=== PATIENT | male | born 1980 | race Caucasian/White ===

== ENCOUNTER → 2022-06-09 | Outpatient (CLI) | payer OTHER, SELFPAY ==
[2022-06-09 10:49] LABS: Hematocrit 49.7 % (40-54); Hemoglobin 16.9 g/dL (13.0-16.5)
[2022-06-09 11:31] LABS: ALB/GLOB Ratio 1.1 RATIO (0.9-2.4); AST(SGOT) 21 U/L (15-37); Alanine Aminotransfer ALT/SGPT 44 U/L (16-61); Albumin, Serum 4.1 g/dL (3.2-5.0); Alkaline Phosphatase 99 U/L (45-117); Anion Gap 6 (5-15); BUN 21 mg/dL (7-18); BUN/Creat Ratio 22.4 RATIO (10-20); Calcium,Total 9.5 mg/dL (8.5-10.1); Chloride 109 mmol/L (98-107); Cholesterol 201 mg/dL (200); Creatinine, Serum 0.94 mg/dL (0.70-1.30); EST Glomerular Filtration Rate 93 mL/min (>60); Est Glom Filt Rate - Afr Amer 112 mL/min (>60); Estradiol 49.5 pg/mL; Follicle Stimulating Hormone 6.9 mIU/mL; Globulin 3.6 g/dL (2.2-4.2); Glucose 102 mg/dL (74-106); High Density Lipoprotein 51 mg/dL; Luteinizing Hormone 7.8 mIU/mL; PSA,Total - Annual Screen 2.29 ng/mL (0.00-4.00); Potassium 4.1 mmol/L (3.5-5.1); Prolactin 8.7 ng/mL; Protein, Total 7.7 g/dL (6.4-8.2); Sodium Level 140 mmol/L (136-145); Thyroid Stim Hormone (TSH) 0.73 uIU/mL (0.358-3.74); Triglycerides 137 mg/dL; Very Low Density Lipoprotein 27 mg/dL (5-40)
[2022-06-16 09:08] LABS: Testosterone, % Free 2.52 % (1.50-4.20); Testosterone, Free 10.74 ng/dL (5.00-21.00)
[2022-06-17 15:48] LABS: Sex Hormone-binding Globulin 34.5 nmol/L (16.5-55.9); Testosterone, Total 426 ng/dL (264-916)
== END | disposition home or self-care (01) ==
PROVIDERS: PCP Nurse Practitioner Family
DX: Z00.00 Encounter for general adult medical examination without abnormal findings (principal); E29.1 Testicular hypofunction; R53.83 Other fatigue; Z12.5 Encounter for screening for malignant neoplasm of prostate
CPT/HCPCS: 36415; 80053; 80061; 82670; 83001; 83002; 84146; 84153; 84270; 84402; 84403; 84443; 85014; 85018; G0103

== ENCOUNTER → 2023-06-03 | Outpatient (CLI) | payer OTHER, SELFPAY ==
[2023-06-03 09:52] LABS: Mean Corp Hgb Conc 34.2 g/dL (32-36); Mean Corpuscular Volume 90.7 fL (80-94); Platelet Count 198 K/mm3 (150-450); RBC Distribution Width CV 12.4 % (11.6-14.6); RBC Distribution Width SD 41.1 fl (35.1-43.9); Red Blood Count 6.13 M/mm3 (4.6-6.2)
[2023-06-03 09:58] LABS: Hematocrit 55.6 % (40-54)
[2023-06-03 10:52] LABS: Hemoglobin A1c 5.1 % (3.8-5.6)
[2023-06-04 07:04] LABS: ALB/GLOB Ratio 1.1 RATIO (0.9-2.4); AST(SGOT) 24 U/L (15-37); Alanine Aminotransfer ALT/SGPT 48 U/L (16-61); Alkaline Phosphatase 89 U/L (45-117); Anion Gap 7 (5-15); BUN 19 mg/dL (7-18); BUN/Creat Ratio 17.8 RATIO (10-20); Calcium,Total 9.3 mg/dL (8.5-10.1); Chloride 105 mmol/L (98-107); Cholesterol 194 mg/dL (200); Creatinine, Serum 1.07 mg/dL (0.70-1.30); EST Glomerular Filtration Rate 80 mL/min (>60); Est Glom Filt Rate - Afr Amer 96 mL/min (>60); Estradiol 22.6 pg/mL; Follicle Stimulating Hormone < 0.2 mIU/mL; Globulin 3.7 g/dL (2.2-4.2); Glucose 103 mg/dL (74-106); High Density Lipoprotein 49 mg/dL; Luteinizing Hormone < 0.2 mIU/mL; PSA,Total - Annual Screen 5.01 ng/mL (0.00-4.00); Prolactin 8.5 ng/mL; Protein, Total 7.7 g/dL (6.4-8.2); Sodium Level 138 mmol/L (136-145); Triglycerides 87 mg/dL; Very Low Density Lipoprotein 17 mg/dL (5-40)
[2023-06-07 10:17] LABS: Pathologist Review Reviewed
[2023-06-08 14:09] LABS: Testosterone, % Free 3.47 % (1.50-4.20); Testosterone, Free 28.97 ng/dL (5.00-21.00); Testosterone, Total 835 ng/dL (264-916)
== END | disposition home or self-care (01) ==
PROVIDERS: PCP Nurse Practitioner Family; Visit Provider Nurse Practitioner Family
DX: Z13.1 Encounter for screening for diabetes mellitus (principal); E29.1 Testicular hypofunction; Z13.6 Encounter for screening for cardiovascular disorders
CPT/HCPCS: 36415; 80053; 80061; 82670; 83001; 83002; 83036; 84146; 84153; 84270; 84402; 84403; 85027; G0103